=== PATIENT | male | born 1980 ===

== ENCOUNTER 2019-05-31 12:34 | Inpatient (IN) | payer OTHER ==
[2019-05-31 13:45] VITALS: BMI 34.4
[2019-05-31] MEDS ORDERED: Calcium Carbonate 500 MG ChewTAB PO PRN (14:25)
[2019-05-31] MEDS ORDERED: Ondansetron PF 4 MG/2 ML Vial IVP PRN (14:25)
[2019-05-31] MEDS ORDERED: Senokot S 8.6-50 MG TAB PO PRN (14:25)
[2019-05-31] MEDS ORDERED: Ondansetron ODT 4 MG TAB PO PRN (14:25)
--- NOTE | 2019-05-31 14:39 | PDOC.FPRHP ---
- History of Present Illness Chief Complaint: Concern for choledocolithiasis History of Present Illness: 39yo male with h/o GERD, Bipolar currently incarcerated who presents as a transfer from [facility] for concern for choledocolithiasis. He first presented to [place] with sxs of RUQ pain, nausea and was found to have cholelithiasis with 9mm dilation of CBD. Lap maycol was performed on 05/30, technically difficult and unable to perform intraop cholangiogram. EGD after surgery demonstrated likely GERD and biopsies taken. His sxs of since resolved and he is completely asx now. Denies any pain, n/v/d/c, fever/chills, dyspnea, angina. No jaundice or scleral icterus noted. He tolerated PO intake last night after surgery without difficulty. He endorses flatus but no BM since surgery. His initial labs trended as follows. AST 268 - 152 - 178. ALT 200-212-284. Alk Phos 91-111-135. TB 2.2-1.2-2.8. His lipase was 33 and amylase 68. Lytes were WNL. No post-op imaging was performed. Due to concern for choledocolithiasis he was transferred to [facility] for GI eval and further management. - Allergies/Adverse Reactions Allergies Allergy/AdvReac Type Severity Reaction Status Date / Time aspirin Allergy Severe Anaphylaxis Verified 05/31/19 13:46 - Home Medications Medication Instructions Recorded Confirmed Type Benztropine [Cogentin] 1 mg PO 1500 05/31/19 05/31/19 History Esomeprazole Magnesium [NexIUM] 20 mg PO 0800,1500 05/31/19 05/31/19 History Haloperidol [Haldol] 15 mg PO 1500 05/31/19 05/31/19 History Meloxicam [Mobic] 15 mg PO DAILY 05/31/19 05/31/19 History diphenhydrAMINE [Benadryl] 50 mg PO 1500 05/31/19 05/31/19 History - History PMHx: OA, GERD, Depression, BiPolar, Schizophrenia PSHx: Lap Maycol on 05/30/19 FHx: Both parents with BMII, HTN Social: Incarcerated for past 10 years. Previous tobacco, alcohol, and illicit drug use including IV drug abuse but has been clean since incarceration. - Review of Systems General: denies: fever/chills, weight/appetite/sleep changes, night sweats Eyes: denies: vision changes ENT: denies: nasal congestion, rhinorrhea Respiratory: denies: cough, congestion, shortness of breath, exercise intolerance Cardiovascular: denies: chest pain, palpitation, edema Gastrointestinal: denies: nausea, vomiting, diarrhea, constipation, GI bleeding Genitourinary: denies: incontinence, dysuria, polyuria Skin: denies: rashes Musculoskeletal: denies: pain Neurological: denies: numbness Psychological: reports: depression - Vital signs BP: 117/78 HR: 78 RR: 18 Tmax: 98.4 Pox: 98% on RA Wt: 108kg - Physical Exam Constitutional: NAD, awake, alert and oriented, well developed HEENT: MMM Neck: supple, trachea midline Chest: no-tender to palpation Heart: RRR, normal S1/S2, no murmurs/rubs/gallops, pulses present, no edema Lungs: CTAB, no respiratory distress, good air movement, no rales/rhonchi, no wheezing Abdomen: soft, non-tender, bowel sounds present, no masses/distention, other ( Lap maycol incisions clean, dry, no erythema or exudate) Musculoskeletal: normal structure Neurological: no focal deficit Skin: no rash/lesions Psychiatric: normal mood and affect, good judgment and insight FMR H&P: Results - Labs Lab results: AST 268 - 152 - 178. ALT 200-212-284. Alk Phos 91-111-135. TB 2.2-1.2-2.8. Lipase 33. Amylase 68. FMR H&P: A/P - Problem List (1) Choledocholithiasis Current Visit: Yes Status: Suspected Code(s): K80.50 - CALCULUS OF BILE DUCT W/O CHOLANGITIS OR CHOLECYST W/O OBST (2) GERD (gastroesophageal reflux disease) Current Visit: Yes Status: Chronic Code(s): K21.9 - GASTRO-ESOPHAGEAL REFLUX DISEASE WITHOUT ESOPHAGITIS (3) Bipolar disorder Current Visit: Yes Status: Chronic Code(s): F31.9 - BIPOLAR DISORDER, UNSPECIFIED - Plan 39yo male with h/o GERD, Bipolar currently incarcerated who presents as a transfer from [facility] for concern for choledocolithiasis. 1. Concern for choledocolithiasis - POD #1 s/p lap maycol, technically difficult, unable to perform intraop cholangiogram. Caprini score moderate. - Liver enzymes initially downtrended post op but then have continued to rise. Lipase WNL. - Transfer from [place] for concern for choledocolithiasis and GI consult - Will trend LFTs with AM CMP - GI, Dr. Cardona, consulted, apprec recs 2. Transaminitis - possibly 2/2 #1 - Will check Hep panel, HIV, RPR - Monitor with daily CMP and Lipase in AM 3. GERD - continue home Prilosec - EGD during lap maycol with biopsies in [facility] 4. Bipolar - Continue home Haldol, benztropine 5. OA - continue home mobic 6. Insomnia - continue home benadryl VTE: Lovenox Diet: NPO until GI recs Code: Full Disposition/LOS: Transfer from [facility] for GI evaluation. Apprec recs. Anticipate hospitalization 2- 3 days. FMR H&P: Upper Level - Plan Date/Time: 05/31/19 1434 PCP: CC- [facility]DC HPI: This is a 39 yo M transferred from [place] for GI evaluation for MRCP/ECRP s/ p cholecystectomy. Patient came in with sharp right sided abdominal pain which started on 05/28 and came and went. It was worse with eating and moving. He had a lap maycol on 05/30 and he states his pain is totally resolved at this time. He denies fevers, chills, or sweats. He denies N/V/D, chest pain, palpitations, or shortness of breath. REVIEW OF SYSTEMS: Gen: no fever, chills, or sweats Neuro: no numbness/tingling, no weakness, denies headache Eyes: no visual changes ENT: no hearing changes, no sore throat, no runny nose Resp: no cough, no SOB, no wheeze Card: denies chest pain or palpitations GI: see hpi : no dysuria, no hematuria MSK: no myalgias, no joint pain/stiffness Skin: no rash, no erythema PHYSICAL EXAMINATION: General: NAD, alert and oriented x3 HEENT: PERRLA, EOMI, normal sclera, oropharynx without erythema or exudate Neck: Supple. Full ROM. Heart/Cardiovascular System: RRR, Cap refill < 3 seconds, no rub, no murmur Lungs/Respiratory System: clear to auscultation bilaterally. No increased work of breathing. Room air. Abdomen/Gastro-Intestinal System: normal bowel sounds, no masses, no organomegaly, post op scars healing appropriately, soft, appropriately tender post-op Extremities: Warm extremities. No cyanosis or edema. Neuro: No gross deficits appreciated. CN 2-12 grossly intact Psychiatry: Awake, Alert and cooperative with exam Skin: No lesions, rashes, or ulcers Musculoskeletal: Full ROM A/P: # Elevated transaminases- possible choledocolithiasis - Will consult GI for possible MRCP vs ERCP - s/p lap maycol 05/30, pre-op 9mm CBD - Bili 2.2- 1.2- 2.8 - AST 178, ALT 284, ALP 135, Lipase 33 - WBC 8.4 - atrophic liver noted on op report, no HIV/Hepatitis/RPR in records will order # Rheumatoid arthritis # Bipolar, schizophrenia # Gerd # VTE ppx - Moderate risk by Caprini score - Immobile 2/2 incarceration, handcuffs - SCD + lovenox Fluids: LR Code status: full PPx: scd, lovenox Dispo: 1-2 days pending GI eval Addendum - Attending - Attending Attestation Date/Time: 05/31/19 3103 I personally evaluated the patient and discussed the management with Dr. Uriah Virgen /Malina Arceo. I agree with the History, Examination, Assessment and Plan documented above with any addition or exceptions noted below. Patient here as transfer from [facility] for higher level of care. Patient originally presented to there with s/sx of cholelithiasis. He underwent lap maycol yesterday, but cholangiogram not attempted due to significant adhesions. There was some enlargement of the CBD on CT scan and U/S. This morning, his pain was improved, but ALP, AST/ALT, and TBili were further elevated. He was transferred here for evaluation of possible Choledocholithiasis. He will be admitted, remain NPO at this time. GI consult will be placed. Provide pain control as needed. Trend labs. Anticipate possible MRCP/ERCP tomorrow pending GI recs. No abx at this time but will start if the clinical situation deems necessary.
[2019-05-31] MEDS: Lactated Ringer's 1,000 ML IV SCH ×2 (15:32→23:46)
[2019-05-31] MEDS ORDERED: cefTRIAXone\\ROCEPHIN 1 GM in Sodium Chloride 0.9% 100 ML IVPB SCH (16:30)
[2019-05-31] MEDS: Benztropine 1 MG TAB PO SCH (17:35)
[2019-05-31] MEDS: diphenhydrAMINE 50 MG CAP PO SCH (17:35)
[2019-05-31] MEDS: Piperacillin/Tazobactam 3.375 GM in Sodium Chloride 0.9% 100 ML IVPB SCH ×2 (17:35→23:46)
[2019-05-31] MEDS ORDERED: Morphine 4 MG/ML VIAL SLOW IVP PRN (17:36)
[2019-05-31] MEDS: Haloperidol 5 MG TAB PO SCH (17:46)
--- NOTE | 2019-05-31 18:14 | PDOC.EVN ---
Event Note - Event Note Event Note: Called to bedside for acute onset of pain Patient states pain is in his chest, later states it is on the right side of his neck, not the chest. Then on exam states the pain is more in his abdomen. Patient states this pain is sudden in onset and indicates it is along the SCM on the right side of his neck. Morphine did help the pain somewhat. He denies chest pressure or shortness of breath VS: T98.3 P69 R 22 100% on RA BP 135/68 Gen: appears anxious CV: RRR, no murmur Resp: CTA-B, no resp distress Abd: soft, no guarding, no distension, appropriately tender to palpation s/p surgery, same as exam earlier in the day EKG: no st changes, no t inv, no q waves- no acute process Plan: suspect referred pain from CBD vs anxiety morphine q4 prn ordered CXR will f/u, asked nursing staff to page should condition worsen
--- NOTE | 2019-05-31 18:44 | CON ---
DATE OF CONSULTATION: 05/31/2019 CHIEF COMPLAINT: Abdominal pain. HISTORY OF PRESENT ILLNESS: Mr. Cooper is a 39-year-old inmate, who developed onset of a tearing epigastric to right upper quadrant abdominal pain on evening. The pain lasted for a couple hours and then improved and then came back with much more severity such that he went to the medical unit, was then transferred to [facility] for further care. At that point, he had an ultrasound of the gallbladder that showed the gallbladder to be distended with cholelithiasis with a positive Gregg sign. He had a CT scan of the abdomen and pelvis that showed common bile duct dilation to 9 mm. He was noted to have elevated liver tests with bilirubin of 2.2, AST of 268, ALT of 200, alkaline phosphatase of 91. He subsequently underwent cholecystectomy in [place] by Dr. Melendrez. There was a difficult approach to the gallbladder, and intraoperative cholangiogram was not performed. The patient's pain improved after the surgery. The first day yesterday after the surgery, he had labs performed. His bilirubin had gone down to 1.2. His transaminases went down slightly as well. His alkaline phosphatase increased a little bit to 111. Today, the patient's liver tests were noted to bump back up with a bilirubin of 2.8, AST of 178, ALT of 284, and alkaline phosphatase of 135. He was then transferred directly to [facility] to be evaluated for ERCP. Upper endoscopy was done at the time of cholecystectomy that reportedly showed some changes of acid reflux and gastropathy. Biopsies were obtained from the antrum and GE junction. A separate endoscopy report is not available for review. PAST MEDICAL HISTORY: Gastroesophageal reflux disease, depression, bipolar disorder, schizophrenia, osteoarthritis. PAST SURGICAL HISTORY: Laparoscopic cholecystectomy yesterday. FAMILY HISTORY: Negative for GI malignancies. SOCIAL HISTORY: He had a past alcohol, drug, and tobacco use, but has been incarcerated for the last 10 years and has been off these substances since then. ALLERGIES: ASPIRIN. MEDICATIONS: 1. Cogentin. 2. Nexium. 3. Haldol. 4. Mobic. 5. Benadryl. REVIEW OF SYSTEMS: Negative x10 systems reviewed except as stated in history of present illness. PHYSICAL EXAMINATION: GENERAL: He is in no acute distress. Alert and oriented x3. VITAL SIGNS: Temperature 97.7, pulse 66, blood pressure 135/73. HEENT: Eyes have no scleral icterus. Oropharynx is clear without lesions. No cervical or supraclavicular lymphadenopathy. LUNGS: Clear to auscultation bilaterally. HEART: Regular rate and rhythm without murmur. ABDOMEN: Tender over the surgical site. Bowel sounds are present. ABDOMEN: Soft, nondistended. EXTREMITIES: No lower extremity edema. Cranial nerves are grossly intact. LABORATORY DATA: Labs were noted in history of present illness. His white blood cell count has been normal. IMPRESSION: Choledocholithiasis. He presented with elevated liver tests and bile duct dilation to 9 mm and calculous cholecystitis. Intraoperative cholangiogram could not be performed at the time of cholecystectomy due to a difficult procedure. This pain is improved after surgery; however, his liver tests have bumped back up. He has had some recurrent pain in the upper epigastric region. RECOMMENDATIONS: 1. We will plan for ERCP tomorrow. 2. Check liver tests in the morning. 3. The patient was on scheduled Zosyn in [place]. I will continue the Zosyn 3.375 g q.6 hours. Job ID: [id number]
--- NOTE | 2019-05-31 19:22 | RAD ---
PORTABLE CHEST 1 VIEW: Date: 05/31/19 Time: 1826 hours HISTORY: Chest pain. FINDINGS: Heart size is normal. Lungs are expanded without focal areas of consolidation, pneumothoraces, or ple ural effusions. IMPRESSION: No acute process. POS: PIEDAD
[2019-06-01 05:55] LABS: #Eosinphils 0.1 thou/uL (0.0-0.7); #Lymphocytes 1.2 thou/uL (1.20-3.40); #Monocytes 0.7 thou/uL (0.11-0.59); %Basophils 0.1 % (0.0-1.0); %Eosinophils 1.5 % (0.0-10.0); %Monocytes 7.5 % (0.0-10.0); %Neutrophils 77.9 % (42.0-75.0); Mean Corpuscular HGB CONC 33.3 g/dL (32.0-36.0); Mean Corpuscular Hemoglobin 29.9 pg (27.0-31.0); Mean Corpuscular Volume 89.7 fL (78.0-98.0); Mean Platelet Volume 7.4 fL (7.4-10.4); Platelet Count 202 thou/uL (130-400); RBC Distribution Width 12.1 % (11.5-14.5); Red Blood Cell (RBC) Count 4.68 mill/uL (4.70-6.10)
[2019-06-01] MEDS: Piperacillin/Tazobactam 3.375 GM in Sodium Chloride 0.9% 100 ML IVPB SCH ×3 (05:55→17:52)
--- NOTE | 2019-06-01 05:56 | PDOC.FM ---
- Subjective Subjective: Patient resting comfortably in bed this morning. He is awaiting ERCP with Dr. Cardona today. He complains of 2/10 abdominal pain while lying down. However when he touches his stomach it greatly increases in severity. Patient slept well overnight and denies any other complaints. Denies chest pain, SOB, headache, nausea/vomiting, stool changes. - Objective Vital Signs & Weight: Vital Signs (12 hours) Temp Pulse Resp BP Pulse Ox 06/01/19 04:00 98.6 F 77 16 136/77 99 05/31/19 19:17 98.5 F 85 20 140/85 95 05/31/19 19:04 97 Weight Weight 108.862 kg I&O: 05/30/19 05/31/19 06/01/19 06:59 06:59 06:59 Output Total 600 Balance -600 Result Diagrams: 06/01/19 05:42 06/01/19 05:42 Phys Exam - Physical Examination Constitutional: NAD HEENT: moist MMs, sclera anicteric Neck: no JVD, supple Respiratory: no wheezing, no rales, no rhonchi, clear to auscultation bilateral Cardiovascular: RRR, no significant murmur Gastrointestinal: soft, positive bowel sounds Severely tender to mild palpation in epigastric & LUQ with guarding. Musculoskeletal: no edema, pulses present currently placed in wrist and ankle cuffs Neurological: normal sensation, moves all 4 limbs Psychiatric: normal affect, A&O x 3 Skin: no rash, normal turgor Dx/Plan (1) Bipolar disorder Code(s): F31.9 - BIPOLAR DISORDER, UNSPECIFIED Status: Chronic Qualifiers: Active/Remission status: remission status unspecified Qualified Code(s): F31.9 - Bipolar disorder, unspecified (2) GERD (gastroesophageal reflux disease) Code(s): K21.9 - GASTRO-ESOPHAGEAL REFLUX DISEASE WITHOUT ESOPHAGITIS Status: Chronic Qualifiers: Esophagitis presence: esophagitis presence not specified Qualified Code(s) : K21.9 - Gastro-esophageal reflux disease without esophagitis (3) Choledocholithiasis Code(s): K80.50 - CALCULUS OF BILE DUCT W/O CHOLANGITIS OR CHOLECYST W/O OBST Status: Suspected (4) Pancreatitis, acute Code(s): K85.90 - ACUTE PANCREATITIS WITHOUT NECROSIS OR INFECTION, UNSP Status: Acute Qualifiers: Pancreatitis type: biliary - Plan Plan: 39yo male with h/o GERD, Bipolar currently incarcerated who presents as a transfer from [facility] for concern for choledocolithiasis. 1. Concern for choledocholithiasis - POD #2 s/p lap maycol, technically difficult, unable to perform intraop cholangiogram. Caprini score moderate. - Liver enzymes initially downtrended post op but then have continued to rise. Lipase 33--> 890 (06/01) - Transfer from [place] for concern for choledocolithiasis and GI consult - Will trend LFTs with AM CMP - GI, Dr. Cardona, consulted, apprec recs: will perform ERCP today, added Zosyn () 2. Transaminitis - possibly 2/2 #1 - Will check Hep panel, HIV, RPR - Monitor with daily CMP and Lipase in AM 3. GERD - continue home Prilosec - EGD during lap maycol with biopsies in [facility] 4. Bipolar - Continue home Haldol, benztropine 5. OA - continue home mobic 6. Insomnia - continue home benadryl 7. Pancreatitis, acute--likely secondary to gallstone remaining s/p Cholecystectomy on 05/30 - increased abdominal pain/tenderness on exam this morning - Lipase 33 -> 890 this morning VTE: Lovenox, SCDs Diet: NPO until GI recs Code: Full Disposition/LOS: Transfer from [facility] for GI evaluation. Apprec recs. Will have ERCP completed today. Anticipate hospitalization 2-3 days. Addendum - Attending - Attending Attestation Date/Time: 06/01/199 I personally evaluated the patient and discussed the management with Dr. Negrete I agree with the History, Examination, Assessment and Plan documented above with any addition or exceptions noted below- Patient without complaints. No further abdominal paim. Afebrile VSS A/P: 1) abd pain secondary to retained gallstone s/p ERCP- will resume diet and monitor.
[2019-06-01 06:10] LABS: ALT (SGPT) 271 U/L (8-55); AST (SGOT) 111 U/L (5-34); Albumin 3.7 g/dL (3.5-5.0); Alkaline Phosphatase 162 U/L (40-150); Anion Gap 13 mmol/L (10-20); BUN (Urea Nitrogen) 5 mg/dL (8.9-20.6); Bilirubin, Total 1.4 mg/dL (0.2-1.2); Calc. Creatinine Clearance 197 mL/min (70-130); Calcium 8.7 mg/dL (7.8-10.44); Carbon Dioxide 23 mmol/L (22-29); Chloride 105 mmol/L (98-107); Estimated GFR-MDRD Greater than 90; Glucose 88 mg/dL (70-105); Lipase 890 U/L (8-78); Potassium 3.4 mmol/L (3.5-5.1); Protein, Total 6.7 g/dL (6.0-8.3); Sodium 138 mmol/L (136-145)
[2019-06-01 06:36] LABS: Syphilis Antibody Nonreactive (Nonreactive); Syphilis Antibody Index 0.04 S/CO (<1.00 Non-Reactive)
[2019-06-01 06:38] LABS: HBCM Index 0.05 S/CO (0-0.79); HBSAg Index 0.15 S/CO (0-0.99); Hep A IgM AB Non-Reactive (NonReactive); Hep A IgM S/CO 0.09 S/CO (0-0.79); Hep B Surf Ag Non-Reactive S/CO (NonReactive); Hep C IgG Ab Non-Reactive (NonReactive); Hep C Index 0.05 S/CO (0-0.79); Hepatitis B Core IgM Abs Non-Reactive (NonReactive)
[2019-06-01] MEDS: Lactated Ringer's 1,000 ML IV SCH ×5 (07:54→22:30)
[2019-06-01] MEDS: Meloxicam 15 MG TAB PO SCH (09:00)
[2019-06-01] MEDS ORDERED: Enoxaparin Sodium 40 MG/0.4 ML SYRINGE SC SCH (09:00)
[2019-06-01] MEDS ORDERED: Indomethacin 50 MG SUPP ONE (11:33)
[2019-06-01] MEDS ORDERED: Iothalamate Meglumine 60% 50 ML VIAL FS ONE (11:33)
[2019-06-01] MEDS ORDERED: Fentanyl 250 MCG/5 ML VIAL ONE (11:51)
--- NOTE | 2019-06-01 12:52 | RAD ---
ERCP: 06/01/2019 COMPARISON: None HISTORY: Pain FINDINGS: 5 images from an ERCP are provided. On the first image there is faint contrast opacificatio n of the common bile duct. The distal common bile duct is never opacified which could be on the basis of a stricture or filling defect. Real-time imaging is essential. The final image demonstrates a balloon inflated within the distal CBD. IMPRESSION: Distal CBD is unopacified limiting assessment. Underlying filling defect or lesion cannot be excluded.
--- NOTE | 2019-06-01 13:31 | OP ---
DATE OF PROCEDURE: 06/01/2019 PROCEDURE PERFORMED: Endoscopic retrograde cholangiopancreatography with sphincterotomy and balloon stone extraction. PREOPERATIVE DIAGNOSIS: Choledocholithiasis and gallstone pancreatitis. INDICATION: The patient underwent laparoscopic cholecystectomy couple of days ago in [place]. His liver tests increased the next day, so he was sent here for choledocholithiasis. He developed some epigastric pain yesterday afternoon. His lipase was noted to increase from normal up to over 800 this morning. He has been pain free; however, since yesterday evening. His pain only lasted for 45 minutes. He was given a bolus of 2 L of lactated Ringer's this morning. He was continued on Zosyn and given preoperative rectal indomethacin. DESCRIPTION OF PROCEDURE: Informed consent was obtained from the patient. He was sedated with general anesthesia and placed in the prone position. The duodenoscope was advanced easily to the second portion of the duodenum. The ampulla was identified and appeared unremarkable with clear yellow bile flow from the ampulla. The bile duct was selectively cannulated without difficulty. Cholangiogram was performed, which showed dilation of the common bile duct to 11 mm with mild dilation of the extrahepatic ducts and normal intrahepatic ducts. A 5 mm filling defect was noted in the distal common bile duct. A complete sphincterotomy was performed. The bile duct was then swept with a 12 mm balloon. A 5 mm yellow pigment stone was swept from the duct with the balloon. The 12 mm balloon passed without resistance through the sphincterotomy. The air and fluid were suctioned from the stomach after occlusion cholangiogram confirmed the duct to be clear. The patient tolerated the procedure well without immediate complications. IMPRESSION: 1. Choledocholithiasis. Common bile duct was dilated to 11 mm by cholangiogram. The intrahepatic ducts were normal. The extrahepatic ducts were mildly dilated. A 5 mm filling defect was noted by cholangiogram. 2. Complete sphincterotomy. 3. A 5 mm yellow pigment stone was swept from the duct with a 12 mm balloon. 4. Occlusion cholangiogram confirmed the duct to be clear. RECOMMENDATIONS: 1. Advance diet as tolerated to a low-fat diet. 2. Check liver function tests in the morning. 3. He should be ready to discharge back to the longterm tomorrow morning as long as he is doing well. Job ID: [id number]
[2019-06-01] MEDS: diphenhydrAMINE 50 MG CAP PO SCH (16:34)
[2019-06-01] MEDS: Benztropine 1 MG TAB PO SCH (16:34)
[2019-06-01] MEDS: Haloperidol 5 MG TAB PO SCH (16:42)
[2019-06-01] MEDS ORDERED: Piperacillin/Tazobactam 3.375 GM VIAL ONE (17:55)
[2019-06-02] MEDS: Piperacillin/Tazobactam 3.375 GM in Sodium Chloride 0.9% 100 ML IVPB SCH ×3 (00:46→12:06)
[2019-06-02] MEDS: Lactated Ringer's 1,000 ML IV SCH (00:49)
[2019-06-02 04:08] LABS: #Eosinphils 0.2 thou/uL (0.0-0.7); #Lymphocytes 1.1 thou/uL (1.20-3.40); #Monocytes 0.5 thou/uL (0.11-0.59); #Neutrophils 6.6 thou/uL (1.40-6.50); %Basophils 0.2 % (0.0-1.0); %Eosinophils 1.9 % (0.0-10.0); %Lymphocytes 13.4 % (21.0-51.0); %Monocytes 6.3 % (0.0-10.0); %Neutrophils 78.2 % (42.0-75.0); Hemoglobin 13.1 g/dL (14.0-18.0); Mean Corpuscular HGB CONC 34.7 g/dL (32.0-36.0); Mean Corpuscular Hemoglobin 31.2 pg (27.0-31.0); Mean Corpuscular Volume 89.9 fL (78.0-98.0); Mean Platelet Volume 7.4 fL (7.4-10.4); Platelet Count 200 thou/uL (130-400); RBC Distribution Width 11.6 % (11.5-14.5); Red Blood Cell (RBC) Count 4.19 mill/uL (4.70-6.10); White Blood Cell (WBC) Count 8.4 thou/uL (4.8-10.8)
[2019-06-02 04:17] LABS: ALT (SGPT) 235 U/L (8-55); AST (SGOT) 90 U/L (5-34); Albumin 3.6 g/dL (3.5-5.0); Alkaline Phosphatase 143 U/L (40-150); Anion Gap 13 mmol/L (10-20); BUN (Urea Nitrogen) 10 mg/dL (8.9-20.6); Calc. Creatinine Clearance 202 mL/min (70-130); Calcium 8.6 mg/dL (7.8-10.44); Carbon Dioxide 21 mmol/L (22-29); Chloride 105 mmol/L (98-107); Estimated GFR-MDRD Greater than 90; Globulin 2.9 g/dL (2.4-3.5); Glucose 101 mg/dL (70-105); Lipase 257 U/L (8-78); Potassium 3.7 mmol/L (3.5-5.1); Protein, Total 6.5 g/dL (6.0-8.3); Sodium 135 mmol/L (136-145)
[2019-06-02 04:35] LABS: HIV (1/2) Antibody/Antigen Non-Reactive (NonReactive); HIV 1/2 INDEX 0.14 S/CO (<1.00)
--- NOTE | 2019-06-02 06:11 | PDOC.FM ---
- Subjective Subjective: Patient had ERCP completed by Dr. Cardona yesterday. He had a balloon sphincterotomy with removal of a 5 mm pigment stone. This morning patient states he does not have any abdominal pain and feels great. He had 2 loose BMs overnight. Denies nausea, vomiting, headache, diarrhea, constipation, upset stomach/indigestion. - Objective Vital Signs & Weight: Vital Signs (12 hours) Temp Pulse Resp BP Pulse Ox 06/01/19 20:00 97 06/01/19 19:30 98.0 F 80 18 131/79 97 Weight Weight 108.862 kg I&O: 05/31/19 06/01/19 06/02/19 06:59 06:59 06:59 Output Total 600 1325 Balance -600 -1325 Result Diagrams: 06/02/19 03:46 06/02/19 03:46 Phys Exam - Physical Examination Constitutional: NAD HEENT: moist MMs, sclera anicteric Neck: no JVD, supple, full ROM Respiratory: no wheezing, no rales, no rhonchi, clear to auscultation bilateral Cardiovascular: RRR, no significant murmur Gastrointestinal: soft, non-tender, no distention, positive bowel sounds Musculoskeletal: no edema, pulses present Neurological: non-focal, normal sensation, moves all 4 limbs Psychiatric: normal affect, A&O x 3 Skin: no rash, normal turgor Deviation from normal: many tattoos on extremities Dx/Plan (1) Bipolar disorder Code(s): F31.9 - BIPOLAR DISORDER, UNSPECIFIED Status: Chronic Qualifiers: Active/Remission status: remission status unspecified Qualified Code(s): F31.9 - Bipolar disorder, unspecified (2) GERD (gastroesophageal reflux disease) Code(s): K21.9 - GASTRO-ESOPHAGEAL REFLUX DISEASE WITHOUT ESOPHAGITIS Status: Chronic Qualifiers: Esophagitis presence: esophagitis presence not specified Qualified Code(s) : K21.9 - Gastro-esophageal reflux disease without esophagitis (3) Choledocholithiasis Code(s): K80.50 - CALCULUS OF BILE DUCT W/O CHOLANGITIS OR CHOLECYST W/O OBST Status: Suspected (4) Pancreatitis, acute Code(s): K85.90 - ACUTE PANCREATITIS WITHOUT NECROSIS OR INFECTION, UNSP Status: Acute Qualifiers: Pancreatitis type: biliary - Plan Plan: 39yo male with h/o GERD, Bipolar currently incarcerated who presents as a transfer from [facility] for concern for choledocolithiasis. 1. Choledocholithiasis - POD #3 s/p lap maycol, technically difficult, unable to perform intraop cholangiogram. Caprini score moderate. - Liver enzymes initially downtrended post op but then have continued to rise - Lipase 33--> 890 (06/01) -> 257 (06/02) - Transfer from [place] for concern for choledocholithiasis and GI consult - Will trend LFTs with AM CMP - GI, Dr. Cardona, consulted, apprec recs: performed ERCP (06/01), added Zosyn (), will place on low-fat diet, okay for discharge back to shelter if clinically improved 2. Transaminitis - possibly 2/2 #1 - Hep panel, HIV, RPR--all negative - Monitor with daily CMP and Lipase in AM - LFTs trending down (06/02) 3. GERD - continue home Prilosec - EGD during lap maycol with biopsies in [place] 4. Bipolar - Continue home Haldol, benztropine 5. OA - continue home mobic 6. Insomnia - continue home benadryl 7. Pancreatitis, acute--likely secondary to gallstone remaining s/p Cholecystectomy on 05/30 - increased abdominal pain/tenderness on exam this morning - Lipase 33 -> 890 -> 257 VTE: Lovenox, SCDs Diet: Low fat Code: Full Disposition/LOS: Transfer from [facility] for GI evaluation. Apprec recs. Anticipate discharge later today. Addendum - Attending - Attending Attestation Date/Time: 06/02/19 1200 I personally evaluated the patient and discussed the management with Dr. Negrete. I agree with the History, Examination, Assessment and Plan documented above with any addition or exceptions noted below.
[2019-06-02 08:42] VITALS: BP 121/81; TEMP 97.6
[2019-06-02] MEDS: Meloxicam 15 MG TAB PO SCH (09:55)
--- NOTE | 2019-06-02 22:47 | EKG ---
Test Reason : Blood Pressure : / mmHG Vent. Rate : 061 BPM Atrial Rate : 061 BPM P-R Int : 148 ms QRS Dur : 094 ms QT Int : 422 ms P-R-T Axes : 000 027 006 degrees QTc Int : 424 ms Normal sinus rhythm , short [place] inerval. Nonspecific ST and T wave abnormality Abnormal ECG No previous ECGs available Confirmed by Uriah RODARTE ([id number]) on 06/02/2019 10:46:48 PM Referred By: MASTER BASSETT Confirmed By:Uriah RODARTE
--- NOTE | 2019-06-03 04:56 | DIS ---
DATE OF ADMISSION: 05/31/2019 DATE OF DISCHARGE: 06/02/2019 RESIDENT: Allison Negrete DO ADMITTING ATTENDING: Torsten Lunsford MD DISCHARGE ATTENDING: Prem Hanson MD CONSULTS: GI, Riley Cardona MD PROCEDURES PERFORMED: 1. Chest x-ray on May 31, 2019: No acute process. 2. ERCP x-ray on June 01, 2019: Distal CBD is unopacified, limiting assessment. Underlying filling defect or lesion cannot be excluded. 3. ERCP on June 01, 2019, by Dr. Cardona: Choledocholithiasis, common bile duct was dilated to 11 mm by cholangiogram. The intrahepatic ducts were normal. The extrahepatic ducts were mildly dilated. A 5 mm filling defect was noted by cholangiogram. Complete sphincterotomy. A 5 mm yellow pigmented stone was swept from the duct with a 12 mm balloon. Occlusion cholangiogram confirmed the duct to be clear. PRIMARY DIAGNOSES: 1. Choledocholithiasis. 2. Transaminitis. SECONDARY DIAGNOSES: 1. Gastroesophageal reflux disease. 2. Bipolar, schizophrenia. 3. OA. 4. Insomnia. 5. Pancreatitis, acute. DISCHARGE MEDICATIONS: 1. Benadryl 50 mg p.o. at 1500. 2. Haloperidol (Haldol) 15 mg p.o. at 1500. 3. Esomeprazole magnesium (Nexium) 20 mg p.o. at 0800 and 1500. 4. Benztropine 1 mg p.o. at 1500. 5. Meloxicam (Mobic) 15 mg p.o. daily. DISCONTINUED MEDICATIONS: 1. Enoxaparin sodium (Lovenox) 40 mg subcutaneous at 0900. 2. Zosyn 3.375 g IVPB q.6 hours, started on May 31 and stopped on June 02. 3. Morphine 4 mg, slow IVP q.4 hours p.r.n. for snhamlby-eb-xpshtz pain. 4. Pantoprazole (Protonix) 40 mg p.o. at 0800 and 1500. 5. Lactated Ringer's IV at 125 mL per hour. 6. Sennosides/docusate sodium (Senokot) two tabs p.o. b.i.d. p.r.n. for constipation. 7. Ondansetron 4 mg p.o. q.6 hours p.r.n. for nausea. 8. Ondansetron 4 mg IVP q.6 hours p.r.n. for nausea. 9. Calcium carbonate (Tums) 1000 mg p.o. q.4 hours p.r.n. for indigestion. HISTORY OF PRESENT ILLNESS/HOSPITAL COURSE: Mr. Cooper is a 39-year-old male with history of GERD, bipolar, schizophrenia, who is currently incarcerated , who presents as a transfer from [facility] for concern for choledocholithiasis. He first presented to [facility] with symptoms of right upper quadrant pain, nausea, and was found to have cholelithiasis with 9 mm dilation of common bile duct. Lap cholecystectomy was performed on 05/30, it was technically difficult and the surgeon was unable to perform an intraoperative cholangiogram. EGD performed after surgery demonstrated likely GERD and biopsies were taken. His symptoms have since resolved and he is completely asymptomatic in the ED. He denied any pain, nausea, vomiting, diarrhea, chills, fever, dyspnea, or anginal symptoms. No jaundice or scleral icterus noted. He tolerated p.o. intake last night after surgery without difficulty. He endorses flatus, but no BM since surgery. His initial labs trended as follows. AST 268 to 152 to 178. ALT 200 to 212 to 284. Alkaline phosphatase 91 to 111 to 135. Total bilirubin 2.2 to 1.2 to 2.8. His lipase was 33 and amylase 68 upon admission. His electrolytes were all normal. No postop imaging was performed since surgery. Due to the concern for choledocholithiasis, he was admitted to the inpatient medicine service for GI evaluation and further management. On the morning of June 01, 2019, the patient was seen lying in bed, complaining of 2/10 abdominal pain. However, upon exam, when touching his epigastric and left upper quadrant region, his pain greatly increased in severity to the point where he almost left out of bed. The patient otherwise denied any complaints. Labs that morning showed an increase in the lipase from 33 to 890. Concern for acute pancreatitis at that time was noted, but likely secondary to a stone in the common bile duct. An ERCP was performed by Dr. Cardona around midday. During that procedure, a 5 mm yellow pigment stone was removed from the common bile duct. The occlusion cholangiogram confirmed the duct to be clear. The patient tolerated the procedure well and later that evening was able to tolerate eating dinner. He had two loose BMs later that night and passed flatus. On the morning of June 02, 2019, the patient's liver enzymes had trended down, status postop day #1. Additionally, his lipase had trended down to 257. Upon exam, the patient stated that he felt great and had no complaints. Physical exam was completely normal. Dr. Cardona cleared him for discharge. The patient was transferred back to [facility] later in the day. PERTINENT LABORATORY DATA: 1. Labs on June 01, 2019: CBC: WBC 9.0, hemoglobin 14.0, hematocrit 42.0, and platelets 202. CMP: Sodium 138, potassium 3.4, chloride 105, carbon dioxide 23, BUN 5, creatinine 0.76, glucose 88, calcium 8.4, total bilirubin 1.4, AST 111, ALT 271, alkaline phosphatase 162, and lipase 890. Syphilis IgG/IgM antibody nonreactive, hepatitis A IgM antibody nonreactive, hep BS antigen nonreactive, hep B core IgM antibody nonreactive, hepatitis C antibody nonreactive, HIV 1 and 2 antigen and antibody nonreactive. Labs on June 02, 2019: CBC: WBC 8.4, hemoglobin 13.1, hematocrit 37.7, and platelets 200. CMP: Sodium 135, potassium 3.7, chloride 105, carbon dioxide 21, BUN 10, creatinine 0.74, glucose 101, calcium 8.6, total bilirubin 1.0, AST 90, ALT 235, alkaline phosphatase 143, lipase 257. DISPOSITION: Stable. DISCHARGE INSTRUCTIONS: 1. Location: [facility]. 2. Diet: Low fat diet for 4 weeks, advance as tolerated to regular diet after that time. 3. Activity: As tolerated. 4. Followup: Followup with primary care provider in 7 days. Job ID: [id number] [id number]
== END 2019-06-02 14:35 | DRG 444 ==
LOC: ERS 12:34 → ONC 13:30
PROVIDERS: ADMIT Student in an Organized Health Care Education/Training Program; ATTEND Student in an Organized Health Care Education/Training Program
PROC: 0F798ZZ Dilation of Common Bile Duct, Via Natural or Artificial Opening Endoscopic (ICD-10-PCS; principal; 2019-06-01)
PROC: BF10YZZ Fluoroscopy of Bile Ducts using Other Contrast (ICD-10-PCS; 2019-06-01)
DX: K80.50 Calculus of bile duct without cholangitis or cholecystitis without obstruction (principal); K85.10 Biliary acute pancreatitis without necrosis or infection; K21.9 Gastro-esophageal reflux disease without esophagitis; F31.9 Bipolar disorder, unspecified; G47.00 Insomnia, unspecified; F20.9 Schizophrenia, unspecified; M06.9 Rheumatoid arthritis, unspecified; Z88.6 Allergy status to analgesic agent; Z79.899 Other long term (current) drug therapy; Z90.49 Acquired absence of other specified parts of digestive tract
CPT/HCPCS: 36415; 71045; 74330; 80053; 80074; 83690; 85025; 86780; 87389; 93005; 93010; 99284; J2270; J2405; J2543; J3010; J3490; Q0163